=== PATIENT | male | born 1970 | race Caucasian/White ===

== ENCOUNTER 2016-04-23 22:56 | Inpatient (IN) | payer OTHER ==
[2016-04-23 23:28] VITALS: BMI 28.0
--- NOTE | 2016-04-23 23:53 | PDOC ---
History of Present Illness <Philipp Metcalf - Last Filed: 04/24/16 03:45> - General History Source: Patient Exam Limitations: No Limitations - History of Present Illness Initial Comments: 04/23/16 23:55 The patient is a 46 year old male with history of a "learning GERD and " elevated liver enzymes" who presents to the ED with his mother at bedside who presents to the ED complaining of hematemesis today. The patient reports he vomits on a daily basis. Today the toilet was "full of blood", prompting him to come to the ED. He denies drinking alcohol regularly, and reports he drank 2 beers last night. No abdominal pain or diarrhea. No fever or chills. No lightheadedness, chest pain, or shortness of breath. The mother reports the patient was told he had elevated liver enzymes during an emergency room visit and never followed up with a PCP because they were moving. Patient does not follow up with a PCP. <Rosanne Pete - Last Filed: 04/24/16 04:51> - General Chief Complaint: Vomiting Blood Stated Complaint: VOMMITING BLOOD Time Seen by Provider: 04/23/16 23:53 Past History - Past Medical History Liver Disease: Yes (liver biopsy) - Psycho/Social/Smoking Cessation Hx Suicidal Ideation: No Smoking History: Never smoked Have you smoked in the past 12 months: No Information on smoking cessation initiated: No Hx Alcohol Use: No Drug/Substance Use Hx: No <Philipp Metcalf - Last Filed: 04/24/16 03:45> <Rosanne Pete - Last Filed: 04/24/16 04:51> - Past Medical History Allergies/Adverse Reactions: Allergies Allergy/AdvReac Type Severity Reaction Status Date / Time No Known Allergies Allergy Verified 04/23/16 23:25 Home Medications: Ambulatory Orders Famotidine [Pepcid] 40 mg PO DAILY 04/23/16 Review of Systems - Review of Systems Able to Perform ROS?: Yes Comments:: 04/24/16 00:02 GENERAL/CONSTITUTIONAL: No fever or chills. No weakness. HEAD, EYES, EARS, NOSE AND THROAT: No change in vision. No ear pain or discharge. No sore throat CARDIOVASCULAR: No chest pain or shortness of breath. RESPIRATORY: No cough, wheezing, or hemoptysis. GASTROINTESTINAL: Hematemesis. No abdominal pain, diarrhea or constipation. GENITOURINARY: No dysuria, frequency, or change in urination. MUSCULOSKELETAL: No joint or muscle swelling or pain. No neck or back pain. SKIN: No rash NEUROLOGIC: No headache, vertigo, loss of consciousness, or change in strength/ sensation. ENDOCRINE: No increased thirst. No abnormal weight change. HEMATOLOGIC/LYMPHATIC: No anemia, easy bleeding, or history of blood clots. ALLERGIC/IMMUNOLOGIC: No hives or skin allergy. <Rosanne Pete - Last Filed: 04/24/16 04:51> *Physical Exam - Vital Signs Last Vital Signs Temp Pulse Resp BP Pulse Ox 98.6 F 86 16 140/91 97 04/23/16 23:26 04/23/16 23:26 04/23/16 23:26 04/23/16 23:26 04/23/16 23:26 <Philipp Metcalf - Last Filed: 04/24/16 03:45> - Vital Signs Last Vital Signs Temp Pulse Resp BP Pulse Ox 98.6 F 86 16 140/91 97 04/23/16 23:26 04/23/16 23:26 04/23/16 23:26 04/23/16 23:26 04/23/16 23:26 - Physical Exam Comments: 04/24/16 00:04 GENERAL: Awake, alert, and fully oriented, in no acute distress HEAD: No signs of trauma EYES: PERRLA, EOMI, sclera anicteric, conjunctiva clear ENT: Auricles normal inspection, hearing grossly normal, nares patent, oropharynx clear without exudates. Moist mucosa NECK: Normal ROM, supple, no lymphadenopathy, JVD, or masses LUNGS: Breath sounds equal, clear to auscultation bilaterally. No wheezes, and no crackles HEART: Regular rate and rhythm, normal S1 and S2, no murmurs, rubs or gallops ABDOMEN: Soft, nontender, normoactive bowel sounds. No guarding, no rebound. No masses EXTREMITIES: Normal range of motion, no edema. No clubbing or cyanosis. No cords, erythema, or tenderness NEUROLOGICAL: Cranial nerves II through XII grossly intact. Normal speech, normal gait SKIN: Warm, Dry, normal turgor, no rashes or lesions noted. <Rosanne Pete - Last Filed: 04/24/16 04:51> ED Treatment Course - LABORATORY CBC & Chemistry Diagram: 04/24/16 00:53 04/24/16 00:53 <Philipp Metcalf - Last Filed: 04/24/16 03:45> - LABORATORY CBC & Chemistry Diagram: 04/24/16 00:53 04/24/16 00:53 <Rosanne Pete - Last Filed: 04/24/16 04:51> Medical Decision Making - Medical Decision Making 04/24/16 02:21 Plan: Labs: CBC, CMP, PT/INR, EtOH levels Type and screen 04/24/16 04:51 Labs reviewed. Patient is admitted to [facility]. <Rosanne Ptee - Last Filed: 04/24/16 04:51> *DC/Admit/Observation/Transfer - Discharge Dispostion Admit: Yes - Attestations Physician Attestion: 04/23/16 23:53 I, Dr. Philipp Metcalf, attest that this document has been prepared under my direction and personally reviewed by me in its entirety. I further attest, that it accurately reflects all work, treatment, procedures and medical decision -making performed by me. <Philipp Metcalf - Last Filed: 04/24/16 03:45> - Attestations Scribe Attestion: 04/24/16 00:04 Documentation prepared by Rosanne Pete, acting as biomedical electronics technician for Philipp Metcalf DO. <Rosanne Pete - Last Filed: 04/24/16 04:51> Diagnosis at time of Disposition: Upper GI bleeding - Discharge Dispostion Condition at time of disposition: Unchanged/Unknown
[2016-04-24 01:09] LABS: BASOPHIL 0.3 % (0-2.0); EOSINOPHIL 0.3 % (0-4.5); MCH 27.8 pg (25.7-33.7); MCHC 32.4 g/dl (32.0-35.9); MEAN CELL VOLUME 85.6 fl (80-96); MEAN PLT VOLUME 8.1 fl (7.5-11.1); NEUTROPHILS 69.9 % (42.8-82.8); PLATELET COUNT 286 K/MM3 (134-434); RDW 13.4 % (11.9-15.9); WHITE BLOOD COUNT 8.7 K/mm3 (4.0-10.0)
[2016-04-24 01:16] LABS: INR 1.17 (0.82-1.09); PROTHROMBIN TIME (PATIENT) 12.9 SEC (9.98-11.88)
[2016-04-24 01:26] LABS: ANION GAP 13 (8-16); BILIRUBIN,TOTAL 0.6 mg/dL (0.2-1.0); CO2 25 mmol/L (21-32); CREATININE 0.8 mg/dL (0.7-1.3); GLUCOSE,RANDOM 91 mg/dL (74-106); SGOT/AST 21 U/L (15-37); SGPT/ALT 37 U/L (12-78); TOT PROT 7.5 g/dl (6.4-8.2)
[2016-04-24 01:27] LABS: ALK PHOS 72 U/L (45-117)
[2016-04-24] MEDS ORDERED: PANTOPRAZOLE SODIUM 40 MG in SODIUM CHLORIDE 100 ML IVPB ONE (03:34)
[2016-04-24] MEDS ORDERED: PANTOPRAZOLE SODIUM 40 MG VIAL ONE (03:53)
[2016-04-24] MEDS ORDERED: PANTOPRAZOLE SODIUM 200 ML IVPB ONE (03:53)
[2016-04-24] MEDS ORDERED: PANTOPRAZOLE SODIUM 100 ML IVPB ONE (03:54)
[2016-04-24] MEDS: PANTOPRAZOLE SODIUM 80 MG in SODIUM CHLORIDE 100 ML IVPB SCH ×2 (04:08→14:02)
--- NOTE | 2016-04-24 05:15 | PN ---
<Mildred Lux - Last Filed: 04/24/16 05:15> Teaching Attending Note ATTENDING PHYSICIAN STATEMENT I saw and evaluated the patient. I reviewed the resident's note and discussed the case with the resident. I agree with the resident's findings and plan as documented. SUBJECTIVE: The patient is a 46 year old male with past medical history of GERD, developmental delay and elevated liver enzymes who presents to the ED with his mother complaining of hematemesis for 6 months. He reports vomiting 3-6x a day right after eating and on occasion without eating. He describes the vomit that is consistent of stomach contents, non bilious and non bloody. He vomited in the toilet today and after vomiting he noticed blood in toilet and on the face believes some was coming from his nose and states that he held his nose after and the bleeding stopped. He reports epigastric pain that is 6/10, nonradiating. He reports cough and heartburn. He notes a recent weight loss of 30 lbs. As per mother the patient has been paranoid recently and has history of auditory hallucinations and psych hospitalizations. Patient was evaluated in ED in [place] and was found to have elevated liver enzymes but did not follow up further because his mother has lost her home and they have been moving a lot to stay with different family members in different states. He reports occasionally drinking 2-4 beers. He denies extensive endset use. He denies any melena and hematochezia. OBJECTIVE: Physical VS: Last Vital Signs Temp Pulse Resp BP Pulse Ox 98.6 F 65 18 130/80 99 04/23/16 23:26 04/24/16 03:47 04/24/16 03:47 04/24/16 03:47 04/24/16 03:47 GENERAL: Awake, alert, and fully oriented, in no acute distress HEENT: +Clotted blood in left torrez. Atraumatic. PERRLA, EOMI. Moist mucosa. No JVD LUNGS: No distress, speaks full sentences, clear to auscultation bilaterally HEART: Regular rate and rhythm, normal S1 and S2, no murmurs, rubs or gallops, peripheral pulses normal and equal bilaterally. ABDOMEN: Soft, nontender, normoactive bowel sounds. No guarding, no rebound. No masses EXTREMITIES: Normal inspection, Normal range of motion, no edema. No clubbing or cyanosis. NEUROLOGICAL: +alert, fluent, appropriate , able to answer simple questions, but occasionally asks mother for assistance with answers. Cranial nerves II through XII grossly intact. Normal speech, normal gait, no focal sensorimotor deficits. SKIN: Warm, Dry, normal turgor, no rashes or lesions noted. LABS: CBCD WBC 8.7 K/mm3 (4.0-10.0) 04/24/16 00:53 RBC 5.20 M/mm3 (4.00-5.60) 04/24/16 00:53 Hgb 14.4 GM/dL (11.7-16.9) 04/24/16 00:53 Hct 44.5 % (35.4-49) 04/24/16 00:53 MCV 85.6 fl (80-96) 04/24/16 00:53 MCHC 32.4 g/dl (32.0-35.9) 04/24/16 00:53 RDW 13.4 % (11.9-15.9) 04/24/16 00:53 Plt Count 286 K/MM3 (134-434) 04/24/16 00:53 MPV 8.1 fl (7.5-11.1) 04/24/16 00:53 CMP Sodium 141 mmol/L (136-145) 04/24/16 00:53 Potassium 3.6 mmol/L (3.5-5.1) 04/24/16 00:53 Chloride 103 mmol/L (98-107) 04/24/16 00:53 Carbon Dioxide 25 mmol/L (21-32) 04/24/16 00:53 Anion Gap 13 (8-16) 04/24/16 00:53 BUN 6 mg/dL (7-18) L 04/24/16 00:53 Creatinine 0.8 mg/dL (0.7-1.3) 04/24/16 00:53 Creat Clearance w eGFR > 60 (>60) 04/24/16 00:53 Calcium 9.0 mg/dL (8.5-10.1) 04/24/16 00:53 Total Bilirubin 0.6 mg/dL (0.2-1.0) 04/24/16 00:53 AST 21 U/L (15-37) 04/24/16 00:53 ALT 37 U/L (12-78) 04/24/16 00:53 Alkaline Phosphatase 72 U/L (45-117) 04/24/16 00:53 Total Protein 7.5 g/dl (6.4-8.2) 04/24/16 00:53 Albumin 4.0 g/dl (3.4-5.0) 04/24/16 00:53 ASSESSMENT AND PLAN: Patient is a 46 year old male with past medical history of GERD, developmental delay and elevated liver enzymes who presents with episode of presumed hematemesis it is unclear if it was hematemesis or if it was a nosebleed. Patient has no blood on the back of the throat but has clotted blood in torrez. He reports improvement by holding nose that stopped the bleeding and denies any more bleeding. Patient does have a history of 6 month recurrent emesis and lost 30 lbs. Ddx for this malignancy, severe GERD, gastritis, gastric ulcer. Patient is in need of GI evaluation. Continue PPI drip for now for possible upper GI bleed low suspicion. Hematemesis - IVF - PPI drip - Serial CBCs - GI follow up - Tylenol for pain <Torey Lorenz - Last Filed: 04/24/16 05:29> Teaching Attending Note Name of Resident: Staecy Rodrigues
--- NOTE | 2016-04-24 06:09 | HP ---
CHIEF COMPLAINT: Hematemesis. PCP: None, pt just moved from [facility] HISTORY OF PRESENT ILLNESS: The pt is a 46 year old male with a PMH of GERD, elevated liver enzymes, mental retardation that presents to the hospital complaining of vomiting blood that started today in AM. He started continuously vomiting blood and states that noticed bleeding from his nose as well. That stopped after several minutes of hosding his nose. He is complaining of epigastric pain, 6/10, sharp, no radiation. He is also complaining of cough for several days. He has been having multiple episodes of vomiting for the past 6 months, right after meal, several times a day. Also noticed wt loss: 30 lbs and decreased appetite. He visited ER few months ago and he was told that his liver enzymes are elevated and diagnosed with GERD. He states that noticed one episode of blood in stool 6 months ago. Currently he denies any change in stool color, diarrhea, fever, chills. He denies dysuria, frequency, urgency, chest pain, SOB, no endoscopy in the past. History was taken from the pt and his mother that was present at bedside. She states that he has been recently more paranoid and tells her that he can hear some voices. He was hospitalized in mental institution for paranoia. The moved from [facility] 2 months ago, lost the apartment and live with different family members. He ER course was notable for: (1)PPI drip (2)labs nl Recent Travel: Yes from [facility] 2 months ago PAST MEDICAL HISTORY: GERD, Elevated liver enzymes, mental retardation PAST SURGICAL HISTORY: right hand surgery bc of accident, B/L feet repair and B/L eye surgery for strabismus Social History: Smoking:Cigar 1/month Alcohol: His mother states that he doesn't drink, only occasionally and that " he needs to stop that". He states that drinks occasionally: 2-3 beers most days of the week. Drugs: Denies Family History: Father:DM Mother:Denies PMH Allergies No Known Allergies Allergy (Verified 04/23/16 23:25) HOME MEDICATIONS: Medication Instructions Recorded Famotidine [Pepcid] 40 mg PO DAILY 04/23/16 REVIEW OF SYSTEMS CONSTITUTIONAL: generalized weakness, malaise, loss of appetite, weight change Absent: fever, chills, diaphoresis, HEENT: Absent: rhinorrhea, nasal congestion, throat pain, throat swelling, difficulty swallowing, mouth swelling, ear pain, eye pain, visual changes CARDIOVASCULAR: Absent: chest pain, syncope, palpitations, irregular heart rate, lightheadedness , peripheral edema RESPIRATORY: cough, Absent: shortness of breath, dyspnea with exertion, orthopnea, wheezing, stridor, hemoptysis GASTROINTESTINAL:vomiting,abdominal pain Absent: , abdominal distension, nausea, diarrhea, constipation, melena, hematochezia GENITOURINARY: Absent: dysuria, frequency, urgency, hesitancy, hematuria, flank pain, genital pain MUSCULOSKELETAL: Absent: myalgia, arthralgia, joint swelling, back pain, neck pain SKIN: Absent: rash, itching, pallor HEMATOLOGIC/IMMUNOLOGIC: Absent: easy bleeding, easy bruising, lymphadenopathy, frequent infections ENDOCRINE: Absent: heat intolerance, cold intolerance NEUROLOGIC: Absent: headache, focal weakness or paresthesias, dizziness, unsteady gait, seizure, mental status changes, bladder or bowel incontinence PSYCHIATRIC: paranoia, hallucinations Absent: depression PHYSICAL EXAMINATION Vital Signs - 24 hr 04/24/16 05:19 Temperature 97.8 F Pulse Rate 86 Respiratory 18 Rate Blood Pressure 125/84 GENERAL: Awake, alert, and fully oriented, anxious, mentally retarded. HEAD: Normal with no signs of trauma. EYES: Pupils equal, round and reactive to light, extraocular movements intact, sclera anicteric, conjunctiva clear. No lid lag. EARS, NOSE, THROAT: Ears normal, oropharynx clear without exudates. Moist mucous membranes. NECK: Normal range of motion, supple without lymphadenopathy, JVD, or masses. LUNGS: Breath sounds equal, clear to auscultation bilaterally. No wheezes, and no crackles. No accessory muscle use. HEART: Regular rate and rhythm, normal S1 and S2 without murmur, rub or gallop. ABDOMEN: Soft, mild tenderness to palpation in epigastrium, not distended, normoactive bowel sounds, no guarding, no rebound, no masses. No hepatomegaly or splenomegaly. MUSCULOSKELETAL: Normal range of motion at all joints. No bony deformities or tenderness. No CVA tenderness. UPPER EXTREMITIES: 2+ pulses, warm, well-perfused. No cyanosis. No clubbing. Cap refill <2 seconds. No peripheral edema. LOWER EXTREMITIES: 2+ pulses, warm, well-perfused. No calf tenderness. No peripheral edema. NEUROLOGICAL: Cranial nerves II-XII intact. Normal speech.Gait not observed. PSYCHIATRIC: Cooperative. Good eye contact. Anxious, paranoid, doesn't understand some questions, not following some commands. SKIN: Warm, dry, normal turgor, no rashes or lesions noted. ASSESSMENT/PLAN: The pt is a 46 year old male with a PMH of GERD, elevated liver enzymes, mental retardation that presents to the hospital complaining of vomiting blood that started today in AM. He started continuously vomiting blood and states that noticed bleeding from his nose as well. That stopped after several minutes. He is complaining of epigastric pain, 6/10, sharp, no radiation. He is also complaining of cough for several days. He has been having multiple episodes of vomiting for the past 6 months, right after meal, several times a day. Also noticed wt loss: 30 lbs and decreased appetite. He is admitted for hematemesis. Hematemesis due to gastric ulcer/Gastritis/Gem Valle Syndrome/Gastric Cancer /Somatization disorder: -PPI drip -NS at rate 83 ml/hr -Chest X ray -GI consultation -f/u CBC -Type and Screen Epigastric pain; -Tylenol 500 Q6h Paranoia: -consider Psychiatry evaluation Possible alcohol addiction: -counseling -trend liver enzymes F/E/N: NS/No changes/NPO Disposition; Admission to med surg. Problem List - Problem (1) Upper GI bleeding Code(s): K92.2 - GASTROINTESTINAL HEMORRHAGE, UNSPECIFIED (2) Paranoia (psychosis) Code(s): F22 - DELUSIONAL DISORDERS Visit type - Emergency Visit Emergency Visit: Yes ED Registration Date: 04/24/16 Care time: The patient presented to the Emergency Department on the above date and was hospitalized for further evaluation of their emergent condition. - New Patient This patient is new to me today: Yes Date on this admission: 04/24/16 - Critical Care Critical Care patient: No
[2016-04-24] MEDS ORDERED: ACETAMINOPHEN 500 MG TABLET (FP) PO PRN (06:10)
[2016-04-24] MEDS: SODIUM CHLORIDE 1,000 ML IV SCH ×2 (07:06→17:54)
[2016-04-24 08:19] LABS: MCH 28.5 pg (25.7-33.7); MEAN CELL VOLUME 86.2 fl (80-96); MEAN PLT VOLUME 8.1 fl (7.5-11.1); PLATELET COUNT 250 K/MM3 (134-434); RDW 13.4 % (11.9-15.9)
[2016-04-24 08:43] LABS: CHOLESTEROL 163 mg/dL (50-200); LDL CHOLESTEROL (ONLY SJRH) 117 mg/dL (5-100)
[2016-04-24 08:48] LABS: CALCIUM 8.8 mg/dL (8.5-10.1); CREATININE 0.8 mg/dL (0.7-1.3)
--- NOTE | 2016-04-24 09:51 | HOSP ---
Subjective - Review of Symptoms Subjective: states he continues to have abdominal pain diffusely which has been intermittent over the past 6 months. assoc with intermittent episodes of N/V, yesterday was 2nd episode of vomiting of blood during this time. does not recall if he was heaving for a long time. assoc with 30lb unintentional weight loss over this time. he was seen by another doctor and was told he need EGD but have not followed up he also said his "liver was bad" and he had yellow eyes. he states he does not know any other hx or other workup/procedures if he had them done and refers to his mother for more questions to be answered. denies CP , sob, fever, chills, melena, BRBPR, c/d. no BM since admission General NAD, no blood noted in the pharynx ABdomen soft NT/ND normoactive BS Plan -Upper GI bleed- low suspicion for GI bleed, reports by admitting physician of + blood in the L nare on exam. Likely gastritis with concern for malignancy with significant weight loss. also notes significant EOTH use. NPO, PPI ggt. Gi called for evaluation, would likely benefit from scope inpatient vs outpatient. -hx of transaminitis- normal LFT here. will need old records -call placed out to mother for collateral information as well as home medication list. awaiting call. Physical Examination Vital Signs: Vital Signs Temperature 97.8 F 04/24/16 05:51 Pulse Rate 86 04/24/16 05:51 Respiratory Rate 18 04/24/16 05:51 Blood Pressure 125/84 04/24/16 05:51 O2 Sat by Pulse Oximetry (%) 99 04/24/16 03:47 Labs: CBC, BMP 04/24/16 08:00 04/24/16 08:00
[2016-04-24 12:23] LABS: MCH 28.4 pg (25.7-33.7); MEAN CELL VOLUME 86.1 fl (80-96); MEAN PLT VOLUME 8.2 fl (7.5-11.1); PLATELET COUNT 244 K/MM3 (134-434); RDW 13.5 % (11.9-15.9); WHITE BLOOD COUNT 7.2 K/mm3 (4.0-10.0)
[2016-04-24 13:23] LABS: URINE APPEARANCE CLEAR; URINE BILIRUBIN NEGATIVE (NEGATIVE); URINE COLOR STRAW; URINE GLUCOSE (UA) NEGATIVE (NEGATIVE); URINE KETONE NEGATIVE (NEGATIVE); URINE LEUK ESTERASE NEGATIVE (NEGATIVE); URINE NITRITE NEGATIVE (NEGATIVE); URINE PROTEIN NEGATIVE (NEGATIVE); URINE UROBILINOGEN NEGATIVE E.U./dl (0.2-1.0)
[2016-04-24 13:27] LABS: URINE BLOOD 1+ (NEGATIVE)
--- NOTE | 2016-04-24 14:57 | CONSULT ---
Consult Consult Specialty:: GASTROENTEROLOGY (FOR DIGIORNO) Reason for Consultation:: POSSIBLE UGI BLEED - History of Present Illness Chief Complaint: NOSEBLEED AND VOMITING History of Present Illness: 46 YEAR OLD MENTALLY CHALLENGED MALE WHO HAS BEEN HAVING EPIGASTRIC DISCOMFORT AND REFLUX SYMPTOMS ( WAS TO SEE LAMINATION INSPECTOR BUT HAS NOT YET DONE SO) ADMITTED WITH UNWITNESSED VOMITING AND EPISTAXSIS. MOTHER BROUGHT HIM INTO THE ED WHEN SHE NOTED BLOOD IN HIS NOSE. THE PATIUENT STATES ALL HE KNOWS IS THAT HE SAW BLOOD IN THE SINK AND IT CAME FROM HIS MOUTH. HIS COUNTS ARE STABLE. HE HAS HAD NO FURTHER EPISODES OF BLEEDING. HIS BUN AND CREATININE ARE NORMAL. HE DOES NOT TAKE NSAIDS AND THE HISTORY OF ALCOHOL ABUSE AND ELEVATED LIVER FUNCTION TESTS/JAUNDICE ARE NOT EVIDENT ON THIS ADMISSION. - History Source History Provided By: Patient, Family Member, Medical Record Limitations to Obtaining History: Clinical Condition - Past Medical History ADDICTIONS COUNSELOR ASSISTANT: Yes: Other (MR) Cardio/Vascular: No: AFIB, Aneurysm, Aortic Insufficiency, Aortic Stenosis, CAD , CHF, Deep Vein Thrombosis, HTN, Hyperlipdemia, OR, Mitral Insufficiency, Mitral Stenosis, Murmur, Pulmonary Hypertension, Other Pulmonary: No: Asthma, Bronchitis, Cancer, COPD, O2 Dependent, Pneumonia, Previously Intubated, Pulmonary Embolus, Pulmonary Fibrosis, Sleep Apnea, Other Gastrointestinal: Yes: GERD, Other (EPIGASTRIC PAIN) Hepatobiliary: Yes: Other (EPISODE OF JAUNDICE ???) Renal/: No: Renal Failure, Renal Inusuff, BPH, Cancer, Hematuria, Hemodialysis , Neurogenic Bladder, Renal Calculi, UTI, Other Heme/Onc: No: Anemia, B12 Deficiency, Bleeding Disorder, Cancer, Current Chemotherapy, Current Radiation Therapy, Hemochromatosis, Hypercoaguable State, Myeloproliferative Synd, Sickle Cell Disease, Sickle Cell Trait, Thrombocytopenia, Other Infectious Disease: No: AIDS, C-Diff, Herpes Zoster, HIV, MRSA, STD's, Tuberculosis, VREF, Other Psych: No: Addictions, Anxiety, Bipolar, Depression, Panic, Psychosis, Schizophrenia, Other Musculoskeletal: No: Bursitis, Chronic low back pain, Hemiparesis, Hemiplegia, Osteoarthritis, Paraplegia, Other Rheumatology: No: Fibromyalgia, Gout, Lupus, Rheumatoid Arthritis, Sarcoidosis, Vasculitis, Other ENT: No: Allergic Rhinitis, Sinusitis, Other Endocrine: No: Galileo's Disease, Ramakrishna's Disease, Diabetes Insipidus, Diabetes Mellitus, Hyperparathyroidism, Hyperthyroidism, Hypothyroidism, Osteopenia, SIADH, Other - Past Surgical History Past Surgical History: No: None, AAA Repair, AICD, Amputation, Appendectomy, Arthrosocopy, AV Fistula/Graft, Bariatric Surgery, Breast Biopsy, Bypass, CABG, Carotid Endarterectomy, Cataract Removal, Cholecystectomy, Colectomy, Colonoscopy, Colostomy, Craniotomy, , Cystectomy, Hernia Repair, Hysterectomy, Ileal Conduit, Ileosotomy, Joint Replacement, Kidney Transplant, Laminectomy, Liver Transplant, Mastectomy, Nephrectomy, Oopherectomy, Orchiectomy, Permanent Pacemaker, Prostatectomy, Splenectomy, Stent, Thoracotomy , TURP, Tonsillectomy, Tubal Ligation, Upper Endoscopy, Valve Replacement, Vasectomy, Vein Stripping/Ligation - Alcohol/Substance Use Hx Alcohol Use: Yes (occasionally with beer) - Smoking History Smoking history: Current some day smoker Have you smoked in the past 12 months: Yes Home Medications - Allergies Allergies/Adverse Reactions: Allergies Allergy/AdvReac Type Severity Reaction Status Date / Time No Known Allergies Allergy Verified 04/23/16 23:25 - Home Medications Home Medications: Ambulatory Orders Famotidine [Pepcid] 20 mg PO Q12H 04/23/16 Acetaminophen [Mapap] 325 mg PO Q6H PRN 04/24/16 Mag Hydrox/Al Hydrox/Simeth [Mylanta Suspension -] 30 ml PO Q6H PRN 04/24/16 Ondansetron [Zofran -] 8 mg PO BID PRN 04/24/16 Family Disease History - Family Disease History Family History: Unremarkable Review of Systems - Review of Systems Constitutional: reports: Other ( HPI) Eyes: reports: No Symptoms HENT: reports: Epistaxis Neck: reports: No Symptoms Cardiovascular: reports: No Symptoms Respiratory: reports: No Symptoms Gastrointestinal: reports: Other ( HPI) Musculoskeletal: reports: No Symptoms Integumentary: reports: No Symptoms Neurological: reports: No Symptoms Hematology/Lymphatic: reports: No Symptoms Physical Exam-GI Vital Signs: Vital Signs Temperature 98.6 F 04/24/16 09:58 Pulse Rate 94 H 04/24/16 09:58 Respiratory Rate 20 04/24/16 09:58 Blood Pressure 137/82 04/24/16 09:58 O2 Sat by Pulse Oximetry (%) 98 04/24/16 09:00 Constitutional: Yes: Well Nourished Eyes: Yes: Conjunctiva Clear HENT: Yes: Atraumatic Neck: Yes: Supple Cardiovascular: Yes: Regular Rate and Rhythm Respiratory: Yes: Regular Gastrointestinal Inspection: Yes: WNL ...Auscultate: Yes: Normoactive Bowel Sounds ...Palpate: Yes: Soft Extremities: Yes: WNL Neurological: Yes: WNL Labs: CBC, BMP 04/24/16 12:19 04/24/16 08:00 INR, PTT INR 1.17 (0.82-1.09) H 04/24/16 00:53 Laboratory Tests 04/24/16 04/24/16 04/24/16 00:53 00:53 08:00 WBC 8.0 RBC 4.87 Hgb 13.8 Hct 42.0 MCV 86.2 MCHC 33.0 RDW 13.4 Plt Count 250 MPV 8.1 INR 1.17 H Sodium Potassium Anion Gap 13 BUN 6 L Creatinine Random Glucose Calcium Total Bilirubin 0.6 AST 21 ALT 37 Alkaline Phosphatase 72 Total Protein 7.5 Albumin 4.0 Urine Blood 04/24/16 04/24/16 04/24/16 08:00 11:45 12:19 WBC 7.2 RBC 4.79 Hgb 13.6 Hct 41.3 MCV 86.1 MCHC 33.0 RDW 13.5 Plt Count 244 MPV 8.2 INR Sodium 140 Potassium 4.0 Anion Gap 7 L BUN 7 Creatinine 0.8 Random Glucose 87 Calcium 8.8 Total Bilirubin AST ALT Alkaline Phosphatase Total Protein Albumin Urine Blood 1+ H Problem List - Problems (1) Epistaxis Assessment/Plan: DOUBT UPPER GI BLEEDING, ADVANCE DIET, PO PROTONIX DISCHARGE IN AM, GI F/U OUTPATIENT Code(s): R04.0 - EPISTAXIS (2) GERD with esophagitis Assessment/Plan: ANTIREFLUX DIET/ PROTONIX FOR 6 WEEKS +/- EGD Code(s): K21.0 - GASTRO-ESOPHAGEAL REFLUX DISEASE WITH ESOPHAGITIS (3) Dyspepsia Assessment/Plan: ABOVE Code(s): R10.13 - EPIGASTRIC PAIN
[2016-04-24] MEDS: PANTOPRAZOLE 40 MG TABLET (FP) PO SCH (15:04)
[2016-04-25] MEDS: guaiFENesin 200 MG/10 ML 10 ML UNIT-DOSE CUPS PO PRN ×2 (00:50→06:10)
[2016-04-25 06:01] VITALS: TEMP 98.2
[2016-04-25] MEDS: SODIUM CHLORIDE 1,000 ML IV SCH (06:08)
[2016-04-25 08:53] VITALS: BP 121/75; PULSE 87
[2016-04-25] MEDS: PANTOPRAZOLE 40 MG TABLET (FP) PO SCH (09:17)
--- NOTE | 2016-04-25 13:45 | DS ---
Physical Exam: SUBJECTIVE: Patient seen and examined at bedside. He has no complaints and denies chest pain , sob, abd pain, n/v, epistaxis, fever, chills. OBJECTIVE: Vital Signs Period Temp Pulse Resp BP Sys/Beltran Pulse Ox Last 24 Hr 98.1 F-98.7 F 69-87 16-22 121-135/71-80 98-100 PHYSICAL EXAM GENERAL: The patient is awake, alert, and fully oriented, in no acute distress. HEAD: Normal with no signs of trauma. EYES: PERRL, extraocular movements intact, sclera anicteric, conjunctiva clear. ENT: Ears normal, nares patent, oropharynx clear without exudates, moist mucous membranes. NECK: Trachea midline, full range of motion, supple. LUNGS: Breath sounds equal, clear to auscultation bilaterally, no wheezes, no crackles, no accessory muscle use. HEART: Regular rate and rhythm, S1, S2 without murmur, rub or gallop. ABDOMEN: Soft, nontender, nondistended, normoactive bowel sounds, no guarding, no rebound, no hepatosplenomegaly, no masses. EXTREMITIES: 2+ pulses, warm, well-perfused, no edema. NEUROLOGICAL: Cranial nerves II through XII grossly intact. Normal speech, gait not observed. PSYCH: Normal mood, normal affect. SKIN: Warm, dry, normal turgor, no rashes or lesions noted. LABS HOSPITAL COURSE: Date of Admission:04/24/16 46 year old male with a PMH of GERD, elevated liver enzymes, mental retardation that presents to the hospital with hematemesis. In the ED, he is found to have nose bleed and diffuse abd pain and reflux symptoms. His lab work was normal and no more bleeding episode was noted. The hematemesis was likely from his nosebleed. He's in stable condition to be discharged home on PPI and expected to f/u with Dr. Caba within a week for further management on GERD. Date of Discharge: 04/25/16 Minutes to complete discharge: 45 <Janak Durán - Last Filed: 04/25/16 14:42> Physical Exam: 46 year old male with a PMH of GERD, elevated liver enzymes, mental retardation that presents to the hospital complaining of vomiting blood -pt admitted to having blood in his nose that stopped after pinching his nose -Hb stable -has complaints of chronic abdominal discomfort and was to see GI as an outpatient -was seen by GI here and plan is for outpatient follow up <Garry Dubois - Last Filed: 04/25/16 18:17> Discharge Summary Reason For Visit: VOMMITING BLOOD Current Active Problems Dyspepsia (Acute) Epistaxis (Acute) GERD with esophagitis (Acute) Paranoia (psychosis) (Chronic) - Home Medications Comprehensive Discharge Medication List: Ambulatory Orders Famotidine [Pepcid] 20 mg PO Q12H 04/23/16 Acetaminophen [Mapap] 325 mg PO Q6H PRN 04/24/16 Mag Hydrox/Al Hydrox/Simeth [MAALOX *SUSPENSION* -] 30 ml PO Q6H PRN 04/24/16 Ondansetron [Zofran -] 8 mg PO BID PRN 04/24/16 Pantoprazole Sodium [Protonix -] 40 mg PO DAILY #30 tablet.ec 04/25/16 <Janak Durán - Last Filed: 04/25/16 14:42> Current Active Problems Dyspepsia (Acute) Epistaxis (Acute) GERD with esophagitis (Acute) Paranoia (psychosis) (Chronic) - Home Medications Comprehensive Discharge Medication List: Ambulatory Orders Famotidine [Pepcid] 20 mg PO Q12H 04/23/16 Acetaminophen [Mapap] 325 mg PO Q6H PRN 04/24/16 Mag Hydrox/Al Hydrox/Simeth [MAALOX *SUSPENSION* -] 30 ml PO Q6H PRN 04/24/16 Ondansetron [Zofran -] 8 mg PO BID PRN 04/24/16 Pantoprazole Sodium [Protonix -] 40 mg PO DAILY #30 tablet.ec 04/25/16 <Garry Dubois - Last Filed: 04/25/16 18:17> Condition: Stable - Instructions Diet, Activity, Other Instructions: Please cont. to take follow up with your primary doctor and Dr. Caba within a week. Referrals: Philipp Caba MD [Staff Physician] - 1 Week Disposition: HOME This patient is new to me today: Yes Date on this admission: 04/25/16 Emergency Visit: No Critical Care patient: No - Discharge Referral Referred to [facility] Med [facility].C[facility] No <Janak Durán - Last Filed: 04/25/16 14:42>
== END 2016-04-25 11:44 | disposition home or self-care (01) | DRG 379 ==
LOC: JER 22:56 → JERBED 04-24 03:49 → J8W 04-24 05:09
PROVIDERS: ADMIT Internal Medicine; ATTEND Internal Medicine
DX: K92.2 Gastrointestinal hemorrhage, unspecified (principal); F78 Other intellectual disabilities; R79.89 Other specified abnormal findings of blood chemistry; F22 Delusional disorders; R04.0 Epistaxis; R10.13 Epigastric pain; K21.0 Gastro-esophageal reflux disease with esophagitis
CPT/HCPCS: 36415; 71020-TC; 80048; 80053; 80061; 81003; 81015; 83721; 85025; 85027; 85610; 86850; 86900; 86901; 99284-25; G0479